=== PATIENT | female | born 1970 | race Caucasian/White ===

== ENCOUNTER → 2025-01-01 16:24 | Outpatient (REF) | payer OTHER, SELFPAY | LOC: RAD 16:24 | PROVIDERS: ATTENDING PHYSICIAN Obstetrics & Gynecology; FAMILY PHYSICIAN Internal Medicine | DX: N93.9 Abnormal uterine and vaginal bleeding, unspecified (principal); D25.0 Submucous leiomyoma of uterus; D25.1 Intramural leiomyoma of uterus | CPT/HCPCS: 76830; 76856 ==